=== PATIENT | male | born 1985 | race Caucasian/White ===

== ENCOUNTER 2016-11-07 20:51 | Emergency (ER) | payer BC ==
--- NOTE | 2016-11-07 21:05 | EDM.PDOC ---
ED HPI GENERAL MEDICAL PROBLEM - General Chief Complaint: Skin Complaint Stated Complaint: PT HAS RASH ON HANDS Time Seen by Provider: 11/07/16 20:59 - History of Present Illness INITIAL COMMENTS - FREE TEXT/NARRATIVE: HISTORY AND PHYSICAL: History of present illness: Patient 31-year-old male presents with a concern of discoloration of his hands bilaterally after mixing [place] cement by hand is in no discomfort no signs or symptoms of any alkali burn he's here after having been made aware of the potential for alkali burn there was no other exposure or concern Review of systems: As per history of present illness and below otherwise all systems reviewed and negative. Past medical history: As per history of present illness and as reviewed below otherwise noncontributory. Surgical history: As per history of present illness and as reviewed below otherwise noncontributory. Social history: No reported history of drug or alcohol abuse. Family history: As per history of present illness and as reviewed below otherwise noncontributory. Physical exam: HEENT: Atraumatic, normocephalic, pupils reactive, negative for conjunctival pallor or scleral icterus, mucous membranes moist, throat clear, neck supple, nontender, trachea midline. Lungs: Clear to auscultation, breath sounds equal bilaterally, chest nontender. Heart: S1S2, regular, negative for clicks, rubs, or JVD. Abdomen: Soft, nondistended, nontender. Negative for masses or hepatosplenomegaly. Negative for costovertebral tenderness. Pelvis: Stable nontender. Genitourinary: Deferred. Rectal: Deferred. Extremities: Atraumatic, patient is some mild discoloration it's somewhat yellow his digits there is no evidence of any burn otherwise no blistering no pain CMS neurovascular exam are unremarkable Neuro: Awake, alert, oriented. Cranial nerves II through XII unremarkable. Cerebellum unremarkable. Motor and sensory unremarkable throughout. Exam nonfocal. Diagnostics: None Therapeutics: None Impression: #1 noxious exposure #2 medical screening exam Definitive disposition and diagnosis as appropriate pending reevaluation and review of above. ED ROS GENERAL - Review of Systems Review Of Systems: ROS reveals no pertinent complaints other than HPI. ED EXAM, SKIN/RASH Exam: See Below (See dictation) Course - Vital Signs Text/Narrative:: Poison control consult Departure - Departure Time of Disposition: 21:04 Disposition: Home, Self-Care 01 Condition: Good Clinical Impression: Encounter for medical screening examination - Discharge Information Forms: ED Department Discharge Additional Instructions: The following information is given to patients seen in the emergency department who are being discharged to home. This information is to outline your options for follow-up care. We provide all patients seen in our emergency department with a follow-up referral. The need for follow-up, as well as the timing and circumstances, are variable depending upon the specifics of your emergency department visit. If you don't have a primary care physician on staff, we will provide you with a referral. We always advise you to contact your personal physician following an emergency department visit to inform them of the circumstance of the visit and for follow-up with them and/or the need for any referrals to a consulting specialist. The emergency department will also refer you to a specialist when appropriate. This referral assures that you have the opportunity for followup care with a specialist. All of these measure are taken in an effort to provide you with optimal care, which includes your followup. Under all circumstances we always encourage you to contact your private physician who remains a resource for coordinating your care. When calling for followup care, please make the office aware that this follow-up is from your recent emergency room visit. If for any reason you are refused follow-up, please contact the [facility] emergency department at and asked to speak to the emergency department charge nurse. Follow-up primary medical doctor 1-2 days return as needed as discussed
== END 2016-11-07 21:18 | disposition home or self-care (01) ==
LOC: MW.ED 20:51
CPT/HCPCS: 99282; 99283

== ENCOUNTER 2017-04-08 08:07 | Day surgery (SDC) | payer BC ==
[~2017-04-08 08:07] MED LIST: EPINEPHrine 1 MG/ML SDV ONE; Lactated Ringers 1,000 ML IV SCH; Oxymetazoline 0.05% Nasal Spray 15 ML Bottle ONE; Sodium Chloride 0.9% 10 ML Syringe FLUSH PRN; Sodium Chloride 0.9% 2.5 ML Syringe FLUSH PRN
[2017-04-08] MEDS ORDERED: fentaNYL 100 MCG/2 ML SDV IVPUSH PRN (08:45)
[2017-04-08] MEDS ORDERED: Remifentanil 1 MG Vial ONE (09:12)
[2017-04-08] MEDS ORDERED: fentaNYL 100 MCG/2 ML SDV ONE ×2 (09:13→13:54)
[2017-04-08] MEDS ORDERED: Ondansetron 4 MG/2 ML SDV ONE (09:13)
[2017-04-08] MEDS ORDERED: Lidocaine 2% 5 ML SDV ONE (09:13)
[2017-04-08] MEDS ORDERED: Midazolam 1 MG/ML 2 ML SDV ONE (09:13)
[2017-04-08] MEDS ORDERED: Succinylcholine/Normal Saline 200 MG/10 ML Syringe ONE (09:13)
[2017-04-08] MEDS ORDERED: Rocuronium 10 MG/ML 10 ML Syringe ONE (09:13)
[2017-04-08] MEDS ORDERED: Propofol 200 MG/20 ML SDV ONE (09:13)
[2017-04-08] MEDS ORDERED: Dexamethasone 4 MG/ML 5 ML MDV ONE (09:52)
[2017-04-08] MEDS ORDERED: [UNRECOGNIZED DRUG - OTHER] ONE (10:00)
--- NOTE | 2017-04-08 10:06 | PCM.PREANE ---
Preanesthetic Assessment - Anesthesia/Transfusion/Family Hx Anesthesia History: Prior Anesthesia Without Reaction Family History of Anesthesia Reaction: No Transfusion History: No Prior Transfusion(s) - Review of Systems General: No Symptoms Pulmonary: No Symptoms Cardiovascular: No Symptoms Gastrointestinal: No Symptoms Neurological: No Symptoms Other: Reports: None - Physical Assessment NPO Status Date: 04/07/17 NPO Status Time: 21:00 O2 Sat by Pulse Oximetry: 97 Respiratory Rate: 14 Vital Signs: Last Vital Signs Temp 36.9 C 04/08/17 08:15 Pulse 64 04/08/17 08:15 Resp 14 04/08/17 08:15 BP 122/69 04/08/17 08:15 Pulse Ox 97 04/08/17 08:15 Height: 1.78 m Weight: 68.039 kg ASA Class: 1 Mental Status: Alert & Oriented x3 Airway Class: Mallampati = 2 Dentition: Reports: Normal Dentition Lungs: Clear to Auscultation, Normal Respiratory Effort Cardiovascular: Regular Rate, Regular Rhythm - Allergies Allergies/Adverse Reactions: Allergies Allergy/AdvReac Type Severity Reaction Status Date / Time No Known Allergies Allergy Verified 11/07/16 21:07 - Anesthesia Plan Pre-Op Medication Ordered: None - Acknowledgements Anesthesia Type Planned: General Anesthesia Pt an Appropriate Candidate for the Planned Anesthesia: Yes Alternatives and Risks of Anesthesia Discussed w Pt/Guardian: Yes Pt/Guardian Understands and Agrees with Anesthesia Plan: Yes PreAnesthesia Questionnaire HEENT History: Reports: Allergic Rhinitis Gastrointestinal History: Reports: None Musculoskeletal History: Reports: Fracture Other Musculoskeletal History: hx fx arm - Infectious Disease History Infectious Disease History: Reports: Chicken Pox - Past Surgical History Head Surgeries/Procedures: Reports: None HEENT Surgical History: Reports: LASIK, Oral Surgery GI Surgical History: Reports: Appendectomy - SUBSTANCE USE Smoking Status *Q: Never Smoker Tobacco Use Within Last Twelve Months:  Recreational Drug Use History: No - HOME MEDS Home Medications: Home Meds Fluticasone Propionate [Flonase] 1 spray NASBOTH DAILY 04/06/17 [History] - CURRENT (IN HOUSE) MEDS Current Meds: Current Medications Fentanyl (Sublimaze) 50 mcg IVPUSH Q5M PRN PRN Reason: Pain (severe 7-10) Stop: 04/09/17 08:45 Lactated Ringer's (Ringers, Lactated) 1,000 mls @ 125 mls/hr IV ASDIRECTED BRIANNE Last Admin: 04/08/17 09:01 Dose: 125 mls/hr Sodium Chloride (Saline Flush) 10 ml FLUSH ASDIRECTED PRN PRN Reason: Keep Vein Open Sodium Chloride (Saline Flush) 2.5 ml FLUSH ASDIRECTED PRN PRN Reason: Keep Vein Open Discontinued Medications Dexamethasone (Dexamethasone) Confirm Administered Dose 20 mg .ROUTE .STK-MED ONE Stop: 04/08/17 09:53 Epinephrine HCl (Adrenalin 1:1000) Confirm Administered Dose 1 mg .ROUTE .STK- MED ONE Stop: 04/08/17 07:35 Fentanyl (Sublimaze) Confirm Administered Dose 100 mcg .ROUTE .STK-MED ONE Stop: 04/08/17 09:14 Lidocaine (Xylocaine-Mpf 2%) Confirm Administered Dose 5 ml .ROUTE .STK-MED ONE Stop: 04/08/17 09:14 Midazolam HCl (Versed 1 Mg/Ml) Confirm Administered Dose 2 mg .ROUTE .STK-MED ONE Stop: 04/08/17 09:14 Ondansetron HCl (Zofran) Confirm Administered Dose 4 mg .ROUTE .STK-MED ONE Stop: 04/08/17 09:14 Oxymetazoline HCl (Afrin Original 0.05% Nasal [place]) Confirm Administered Dose 15 ml .ROUTE .STK-MED ONE Stop: 04/08/17 07:35 Propofol (Diprivan 20 Ml) Confirm Administered Dose 800 mg .ROUTE .STK-MED ONE Stop: 04/08/17 09:14 Remifentanil (Ultiva) Confirm Administered Dose 2 mg .ROUTE .STK-MED ONE Stop: 04/08/17 09:13 Rocuronium [place] (Zemuron) Confirm Administered Dose 100 mg .ROUTE .STK-MED ONE Stop: 04/08/17 09:14 Succinylcholine Chloride (Succinylcholine In Ns Pf) Confirm Administered Dose 200 mg .ROUTE .STK-MED ONE Stop: 04/08/17 09:14
[2017-04-08] MEDS ORDERED: EPINEPHrine 1 MG/ML SDV ONE (11:15)
[2017-04-08] MEDS ORDERED: Thrombin (Bovine) 5,000 Unit Kit ONE (11:15)
[2017-04-08] MEDS ORDERED: Lidocaine 2% with EPINEPHrine 1:100,000 20 ML MDV ONE (11:16)
[2017-04-08] MEDS ORDERED: Lidocaine 1% 20 ML MDV ONE (11:16)
--- NOTE | 2017-04-08 11:23 | PCM.OPNOTE ---
- General Post-Op/Procedure Note Condition: Good Free Text/Narrative:: Diagnosis: Right nasal cavity mass; deviated nasal septum Procedure: Endoscopic septoplasty, endoscopic excision of right nasal septal mass Surgeon: Beverly Magana MD Anesthesia: Anesthesiologist: Date of procedure: Indications: Findings: Operation Details: An informed consent was obtained. A time out was performed and the patient was brought back to the operating room. Gen. anesthesia was administered with an endotracheal tube. Bilateral nasal cavities were packed with oxymetazoline 0.05 % soaked cottonoid pledgets. The patient was then prepped and draped in a standard fashion. Bilateral eyes were left exposed and lubricating ointment was inserted into the eyes. The pledgets were then removed. Specimens: Right nasal septal mass IV fluids: 2000 ml Blood loss: 20 ml Blood products: nil Disposition: PACU for recovery Follow up: In 1 week for removal of splints.
[2017-04-08] MEDS ORDERED: ceFAZolin 1 GM Vial ONE (12:08)
[2017-04-08] MEDS ORDERED: Sodium Chloride 0.9% 20 ML ONE (12:08)
[2017-04-08] MEDS ORDERED: Phenylephrine/Normal Saline 100 MCG/ML 10 ML Syringe ONE (12:48)
[2017-04-08] MEDS ORDERED: Acetaminophen/HYDROcodone 325-5 MG Tab PO PRN (15:07)
--- NOTE | 2017-04-08 15:16 | PCM.POSTAN ---
POST ANESTHESIA ASSESSMENT - MENTAL STATUS Mental Status: Alert, Oriented - RESPIRATORY Respiratory Status: Respiratory Rate WNL, Airway Patent, O2 Saturation Stable - CARDIOVASCULAR CV Status: Pulse Rate WNL, Blood Pressure Stable - GASTROINTESTINAL GI Status: No Symptoms - POST OP HYDRATION Hydration Status: Adequate & Stable
--- NOTE | 2017-04-08 16:25 | PCM48HPAN ---
Post Anesthesia Note - EVALUATION WITHIN 48HRS OF ANESTHETIC Vital Signs in Normal Range: Yes Patient Participated in Evaluation: Yes Respiratory Function Stable: Yes Airway Patent: Yes Cardiovascular Function Stable: Yes Hydration Status Stable: Yes Pain Control Satisfactory: Yes Nausea and Vomiting Control Satisfactory: Yes Mental Status Recovered: Yes
[2017-04-08 17:30] VITALS: BP 134/86
== END 2017-04-08 17:10 | disposition home or self-care (01) ==
LOC: MW.SDS 08:07
PROVIDERS: ATTEND Otolaryngology
DX: Q85.8 Other phakomatoses, not elsewhere classified (principal); Z91.09 Other allergy status, other than to drugs and biological substances; Z72.0 Tobacco use; Z90.49 Acquired absence of other specified parts of digestive tract
CPT/HCPCS: 30520; 31237; 88305; A9270; J0171; J0690; J2250; J2405; J3010; J7120; 00160; J1100; J2704